=== PATIENT | female | born 1995 | race Native Hawaiian/Other Pacific Islander ===

== ENCOUNTER 2016-11-02 00:58 | Emergency (ER) | payer BC ==
[2016-11-02 01:38] LABS: BASO # 0.1 K/uL (0.0-0.2); BASO % 0.6 % (0.0-2.0); EOS # 0.1 K/uL (0.0-0.7); LYMPH # 2.4 K/uL (1.0-4.3); LYMPH % 27.5 % (20.0-40.0); MEAN CELL VOLUME 87.7 fL (81.0-99.0); MEAN CORPUSCULAR HEMOGLOBIN 29.5 pg (27.0-31.0); MEAN CORPUSCULAR HGB CONC 33.6 g/dL (33.0-37.0); MEAN PLATELET VOLUME 8.2 fL (7.2-11.7); MONO # 0.8 K/uL (0.0-0.8); MONO % 9.2 % (0.0-10.0); NRBC % 0.1 % (0.0-2.0); RED CELL DISTRIBUTION WIDTH 14.1 % (11.5-14.5); WHITE BLOOD COUNT 8.9 K/uL (4.8-10.8)
[2016-11-02 01:42] LABS: CHLORIDE 108 mmol/L (98-107); POTASSIUM 4.1 mmol/L (3.6-5.2); SODIUM 146 mmol/L (132-148)
[2016-11-02 01:44] LABS: BILIRUBIN,TOTAL 0.9 mg/dL (0.2-1.3); GFR AFRICAN-AMERICAN > 60
[2016-11-02 01:45] LABS: ALB/GLOB RATIO 1.5 (1.0-2.1); ALKALINE PHOSPHATASE 70 U/L (38-126); ALT/SGPT 24 U/L (9-52); AST/SGOT 24 U/L (14-36); BLOOD UREA NITROGEN 18 mg/dL (7-17); CALCIUM 10.2 mg/dl (8.6-10.4); CARBON DIOXIDE 22 mmol/L (22-30); GLUCOSE,RANDOM 112 mg/dL (65-105); TOTAL PROTEIN 8.4 g/dL (6.3-8.3)
[2016-11-02 01:46] LABS: ALCOHOL SERUM < 10 mg/dl (0-10)
--- NOTE | 2016-11-02 02:08 | C.PDOC ---
History Of Present Illness Patient is a 21 year old female that presents to the ER with mother for a complaint of not speaking, anxiety and increased anger. Mother states patient has become increasingly angry over the last several days, stopped eating 2 days ago and stopped talking today. Patient is now just staring into space. Mother does not believe the patient is on any type of drugs and denies any past medical or mental Hx. Patient has no physical complaints at this time. Time Seen by Provider: 11/02/16 01:03 Chief Complaint (Nursing): Anxiety History Per: Family History/Exam Limitations: other (Patient refusing to speak) Onset/Duration Of Symptoms: Days Current Symptoms Are (Timing): Still Present Suicide/Self Injury Attempted (Context): None Modifying Factor(s): None Associated Symptoms: Anger, Anxiety, Other (not eating). denies: Depression, Suicidal Thoughts, Suicidal Plan Involuntary Hold By: None Recent travel outside of the [place]: No Past Medical History Reviewed: Historical Data, Nursing Documentation, Vital Signs Vital Signs: Last Vital Signs Temp 97.8 F 11/02/16 04:41 Pulse 99 H 11/02/16 04:41 Resp 18 11/02/16 04:41 BP 121/72 11/02/16 04:41 Pulse Ox 96 11/02/16 04:41 - Medical History PMH: No Chronic Diseases Surgical History: No Surg Hx Family History: States: Unknown Family Hx - Social History Hx Alcohol Use: No Hx Substance Use: No Review Of Systems Constitutional: Negative for: Fever, Chills Gastrointestinal: Negative for: Nausea, Vomiting, Diarrhea Psych: Positive for: Anxiety Physical Exam - Physical Exam Appears: Non-toxic, No Acute Distress, Other (Non-verbal but following simple commands) Skin: Normal Color, Warm, Dry Head: Atraumatic, Normacephalic Oral Mucosa: Moist Chest: Symmetrical, No Tenderness Cardiovascular: Rhythm Regular, No Murmur Respiratory: Normal Breath Sounds, No Rales, No Rhonchi, No Wheezing Gastrointestinal/Abdominal: Soft, No Tenderness Neurological/Psych: Oriented x3, Normal Cognition ED Course And Treatment - Laboratory Results Result Diagrams: 11/02/16 01:27 11/02/16 01:27 O2 Sat by Pulse Oximetry: 98 (Room air) Pulse Ox Interpretation: Normal Medical Decision Making Medical Decision Making: Plan: Labs usd NEDRA nava Pt seen by crisis, and she was able to interview the pt Pt declined any intervention, has no SI HI and stable for dc Plan dc home Disposition - Disposition Disposition: HOME/ ROUTINE Disposition Time: 04:27 Condition: FAIR Forms: General Discharge Instructions - Clinical Impression Clinical Impression: Anxiety - Scribe Statement The provider has reviewed the documentation as recorded by the Scribe Alexandr Bowser All medical record entries made by the Scribe were at my direction and personally dictated by me. I have reviewed the chart and agree that the record accurately reflects my personal performance of the history, physical exam, medical decision making, and the department course for this patient. I have also personally directed, reviewed, and agree with the discharge instructions and disposition.
[2016-11-02 02:15] LABS: THYROID STIMULATING HORMONE 2.66 mIU/L (0.46-4.68)
[2016-11-02 02:51] LABS: URINE BILIRUBIN NEGATIVE (NEGATIVE); URINE COLOR STRAW (YELLOW); URINE GLUCOSE (UA) Normal (Normal)
[2016-11-02 02:52] LABS: PH,URINE 5 (5.0-8.0); RBC URINE 5 /hpf (0-3); URINE BLOOD NEGATIVE (NEGATIVE); URINE KETONE 1+ mg/dL (NEGATIVE); URINE LEUKOCYTE ESTERASE 2+ Leu/uL (Negative); URINE PROTEIN 1+ mg/dL (NEGATIVE); URINE UROBILINOGEN Normal mg/dL (0.2-1.0)
[2016-11-02 02:53] LABS: URINE BACTERIA FEW (<OCC); WBC URINE 13 /hpf (0-5)
[2016-11-02 04:41] VITALS: BP 121/72; PULSE 99; RESP 18; TEMP 97.8
[2016-11-04 08:22] VITALS: O2SAT 98
== END 2016-11-02 04:41 | disposition home or self-care (01) ==
LOC: C.ER 00:58
DX: F41.9 Anxiety disorder, unspecified (principal)
CPT/HCPCS: 80053; 81001; 84443; 84703; 85025; 99283; G0480

== ENCOUNTER 2018-03-31 18:19 | Emergency (ER) | payer BC ==
[2018-03-31 18:20] VITALS: BMI 26.4
[2018-03-31] MEDS ORDERED: Lidocaine 1% Inj (20ml) INFIL ONE (19:04)
[2018-03-31] MEDS ORDERED: Lidocaine Hydrochloride 10 ML INJ ONE (19:08)
[2018-03-31] MEDS ORDERED: Bacitracin 500 Units/gm Oint Foilpak UD ONE ×2 (19:09→21:17)
--- NOTE | 2018-03-31 19:56 | C.PDOC ---
History Of Present Illness 22 year old female presents to the ED for evaluation of a laceration to right hand, 2nd digit which she sustained earlier today. Patient states she accidentally cut herself with a boning knife while trying to put cover on knife. . decreased sensation distal to laceration. Time Seen by Provider: 03/31/18 18:39 Chief Complaint (Nursing): Abnormal Skin Integrity History Per: Patient History/Exam Limitations: no limitations Onset/Duration Of Symptoms: Hrs Current Symptoms Are (Timing): Still Present Location Of Injury: Right: Hand (2nd digit ) Additional History Per: Patient Past Medical History Reviewed: Historical Data, Nursing Documentation, Vital Signs Vital Signs: Last Vital Signs Temp 98.5 F 03/31/18 19:03 Pulse 96 H 03/31/18 19:03 Resp 20 03/31/18 19:03 BP 105/73 03/31/18 19:03 Pulse Ox 96 03/31/18 19:03 - Medical History PMH: Anxiety, Depression (HX MAJOR DEPRESSION) Denies: Diabetes, Hepatitis, HIV, HTN, Personality Disorder, Chronic Kidney Disease, Seizures, Sexually Transmitted Disease Surgical History: Tonsillectomy - [facility] MEDICATION MANAGEMENT (11/03/16) Family History: States: Unknown Family Hx - Social History Hx Alcohol Use: No Hx Substance Use: No Review Of Systems Skin: Positive for: Other (laceration to right hand, 2nd digit ) Neurological: Negative for: Weakness, Numbness Physical Exam - Physical Exam Appears: Non-toxic, No Acute Distress Skin: Normal Color, Warm, Dry, Other (jagged, irregular, curved laceration to distal phalanx of right index finger, DIP ) Extremity: No Normal ROM (limited flexion of right second finger at dip, normal rom all other right fingers and 2nd finger at pip) Pulses: Right Radial: Normal Neurological/Psych: Oriented x3, Normal Speech, Normal Cognition, No Normal Motor (dec flexion right 2nd finger at dip), No Normal Sensation (decreased sensaiton right 2nd dip distal to laceration) ED Course And Treatment O2 Sat by Pulse Oximetry: 96 (on RA) Pulse Ox Interpretation: Normal Progress Note: Right hand XR ordered and reviewed. Tylenol PO, Kelfex PO, Bacitracin TOP, Tetanus IM administered. Laceration - Laceration Repair right hand, 2nd digit Wound Length (In cm): 2.5 Description Of Wound: Irregular Anesthesia: Lidocaine 1% Wound Examination: Irrigated With Saline, No FB With Wound Exploration Wound Closure: Suture Suture Technique And Material Used: Nylon (three 5-0 and four 3-0) Wound Complexity: Intermediate Medical Decision Making Medical Decision Making: Progress: Splint applied by network technology instructor and was checked by me. Patient advised to follow up with Dr. Estrella Herrera (hand surgery) within 1-2 days for further evaluation. discussed with Dr Herrera; concern for tendon injury due to decreased flexion., will see patient in office on Thursday. Disposition Discussed With Dr.: Jairo Herrera Doctor Will See Patient In The: Office Counseled Patient/Family Regarding: Studies Performed, Diagnosis, Need For Followup, Rx Given - Disposition Referrals: Jairo Herrera MD [Staff Provider] - Disposition: HOME/ ROUTINE Disposition Time: 21:19 Condition: GOOD Additional Instructions: keep wound clean and dry. Call Dr Herrera's office tomorrow to make appointment for Thursday- let office know you were seen in ED on Thu. and told to come on Thursday. Office number is [id number] [place] [address]. Tylenol for pain if needed. Take antibiotics as prescribed. Prescriptions: Cephalexin [cephalexin] 500 mg PO Q6 #28 cap Cephalexin [cephalexin] 500 mg PO Q6 #28 cap Instructions: Laceration Repair With Stitches (DC) Forms: [facility] (Turkmen), General Discharge Instructions - Clinical Impression Clinical Impression: Laceration of right index finger - PA / LEAD [employer]NER SUPERVISOR / Resident Statement MD/DO has reviewed & agrees with the documentation as recorded. - Scribe Statement The provider has reviewed the documentation as recorded by the Scribe (Cesia Gusman) All medical record entries made by the Scribe were at my direction and personally dictated by me. I have reviewed the chart and agree that the record accurately reflects my personal performance of the history, physical exam, medical decision making, and the department course for this patient. I have also personally directed, reviewed, and agree with the discharge instructions and disposition.
[2018-03-31] MEDS ORDERED: Tetanus/Diphtheria Toxoids 0.5 ml Syringe IM ONE ×2 (20:29→20:34)
[2018-03-31] MEDS ORDERED: Bacitracin 500 Units/gm Oint Foilpak UD TOP ONE (21:19)
[2018-03-31 21:44] VITALS: BP 123/68; PULSE 88; RESP 18; TEMP 98.1
[2018-03-31 22:27] VITALS: O2SAT 96
--- NOTE | 2018-04-01 08:08 | RAD ---
Date of service: 03/31/2018 PROCEDURE: Right Index finger radiographs. HISTORY: laceration index finger distal phalansx COMPARISON: None. TECHNIQUE: AP radiograph of the right hand, as well as spot oblique and lateral images of index finger were obtained. FINDINGS: RIGHT INDEX FINGER: No fracture or lytic lesion. JOINTS: Normal. SOFT TISSUES: Disruption compatible with recent focal trauma 2nd digit radial aspect. No radiopaque foreign body appreciated OTHER FINDINGS: None. IMPRESSION: Posttraumatic (laceration) soft tissue changes. No fracture or dislocation. No radiopaque foreign body
== END 2018-03-31 21:48 | disposition home or self-care (01) ==
LOC: C.ER 18:19
DX: S61.210A Laceration without foreign body of right index finger without damage to nail, initial encounter (principal); W26.0XXA Contact with knife, initial encounter